=== PATIENT | female | born 1985 | race Caucasian/White ===

== ENCOUNTER 2018-02-02 05:40 | Day surgery (SDC) | payer OTHER ==
[~2018-02-02 05:40] MED LIST: SYNTHROID88 MCG PO
== END 2018-02-02 13:25 | disposition home or self-care (01) ==
LOC: CIR.AMB 05:40
DX: N84.0 Polyp of corpus uteri (principal)

== ENCOUNTER 2018-02-20 20:41 | Inpatient (IN) | payer OTHER ==
[~2018-02-20] VITALS: Ht 165.1 cm; Wt 83.9 kg
[2018-02-22] MEDS ORDERED: LEVOTHYROXINE88 MCG PO (10:51)
[2018-02-22] MEDS ORDERED: FEOSOL325 MG PO (10:51)
== END 2018-02-22 14:40 | disposition home or self-care (01) | DRG 812 ==
LOC: ER 20:41 → OB/GYN 23:45
PROC: 30233N1 Transfusion of Nonautologous Red Blood Cells into Peripheral Vein, Percutaneous Approach (ICD-10-PCS; principal; 2018-02-21)
DX: D50.0 Iron deficiency anemia secondary to blood loss (chronic) (principal); N93.8 Other specified abnormal uterine and vaginal bleeding; E03.8 Other specified hypothyroidism